=== PATIENT | female | born 1965 | race Caucasian/White ===

== ENCOUNTER 2024-06-12 10:20 | Outpatient (CLI) | payer OTHER, SELFPAY | END 2024-06-12 10:21 | disposition home or self-care (01) | LOC: NFLDREF 06-16 09:26 | PROVIDERS: PCP Physician Assistant Medical; Referring Provider Physician Assistant Medical; Visit Provider Physician Assistant Medical | DX: Z00.00 Encounter for general adult medical examination without abnormal findings (principal); R73.03 Prediabetes; E66.9 Obesity, unspecified; E03.9 Hypothyroidism, unspecified; E78.5 Hyperlipidemia, unspecified; E27.9 Disorder of adrenal gland, unspecified | CPT/HCPCS: 80053; 80061; 82533; 84443 ==

== ENCOUNTER 2024-07-25 15:50 | Outpatient (CLI) | payer OTHER, SELFPAY ==
[2024-07-25 16:03] LABS: Appearance Urine Clear (Clear); Bilirubin Urine Negative (Negative); Blood Urine Negative (Negative); Color Urine Yellow (Yellow); Glucose Urine Negative (Negative); Ketones Urine Negative (Negative); Leukocyte Esterase Urine Negative (Negative); Nitrite Urine Negative (Negative); Protein Urine Negative (Negative); Urobilinogen Urine 0.2 (0.2-1.0)
[2024-07-31 12:00] LABS: HPV Source Cervical; HPV, High Risk by TMA Not Detected
== END 2024-07-25 15:51 | disposition home or self-care (01) ==
PROVIDERS: PCP Physician Assistant Medical; Visit Provider Obstetrics & Gynecology
DX: Z12.4 Encounter for screening for malignant neoplasm of cervix (principal); N39.41 Urge incontinence
CPT/HCPCS: 81003; 87086; 87624; 87625; 88141; 88142

== ENCOUNTER 2024-09-06 07:48 | Outpatient (CLI) | payer OTHER, SELFPAY | END 2024-09-06 07:49 | disposition home or self-care (01) | LOC: RAD 07:49 | PROVIDERS: PCP Physician Assistant Medical; Visit Provider Physician Assistant Medical | DX: R01.1 Cardiac murmur, unspecified (principal) | CPT/HCPCS: 93306 ==

== ENCOUNTER 2024-09-25 11:30 | Outpatient (RCR) | payer OTHER, SELFPAY | END 2024-12-11 12:12 | disposition home or self-care (01) | PROVIDERS: PCP Physician Assistant Medical; Visit Provider Obstetrics & Gynecology | DX: N39.46 Mixed incontinence (principal); R15.9 Full incontinence of feces; Z51.89 Encounter for other specified aftercare | CPT/HCPCS: 97110; 97112; 97161; 97535 ==

== ENCOUNTER 2025-03-05 10:04 | Outpatient (CLI) | payer OTHER, SELFPAY | END 2025-03-05 10:05 | disposition home or self-care (01) | LOC: LKVREF 10:05 | PROVIDERS: PCP Physician Assistant Medical; Visit Provider Physician Assistant Medical | DX: E55.9 Vitamin D deficiency, unspecified (principal); R79.82 Elevated C-reactive protein (CRP); R73.03 Prediabetes; E66.9 Obesity, unspecified | CPT/HCPCS: 82306 ==

== ENCOUNTER 2025-06-04 11:22 | Outpatient (CLI) | payer OTHER, SELFPAY | END 2025-06-04 11:23 | disposition home or self-care (01) | LOC: LKVREF 11:23 | PROVIDERS: PCP Physician Assistant Medical; Visit Provider Physician Assistant Medical | DX: E03.9 Hypothyroidism, unspecified (principal) | CPT/HCPCS: 84443 ==